=== PATIENT | male | born 1995 | race American Indian/Alaskan Native ===

== ENCOUNTER 2019-10-29 18:01 | Emergency (ER) | payer SELFPAY ==
[2019-10-29] MEDS ORDERED: methylPREDNISolone Sod Succinate 125 MG/2 ML INJ IV ONE (18:21)
[2019-10-29] MEDS ORDERED: diphenhydrAMINE 50 MG/ML VIAL IV ONE (18:21)
[2019-10-29] MEDS ORDERED: SODIUM CHLORIDE 0.9% 1000 ML 1,000 ML IV ONE (18:22)
[2019-10-29] MEDS ORDERED: FAMOTIDINE 20 MG/2 ML INJ IV ONE (18:22)
--- NOTE | 2019-10-29 18:40 | Emergency Department Report ---
ED Allergic Reaction HPI - General Chief complaint: Allergic Reaction Stated complaint: ALLERGIC REACTION Time Seen by Provider: 10/29/19 18:21 Source: patient Mode of arrival: Ambulatory Limitations: No Limitations - History of Present Illness Initial Comments: Patient is 24-year-old male with no significant past medical history. Patient presented to the ER complaining of generalized rash and itching and hives. Patient stated that he stepped on ant hole and since then he started having the symptoms. Patient denied any difficulty in breathing, shortness of breath, tongue swelling or difficulty swallowing. Patient vital signs currently stable with oxygen saturation of 100%. MD Complaint: allergic reaction, hives -: Sudden, This evening Exposure: insect bite Symptoms: rash Severity: moderate Treatment Prior to Arrival: none Previous Allergy History: none - Related Data Allergies Allergy/AdvReac Type Severity Reaction Status Date / Time No Known Allergies Allergy Unverified 10/29/19 18:03 ED Review of Systems ROS: Stated complaint: ALLERGIC REACTION Other details as noted in HPI Comment: All other systems reviewed and negative Constitutional: denies: chills, fever Respiratory: denies: cough, shortness of breath, SOB with exertion Cardiovascular: denies: chest pain, palpitations Gastrointestinal: denies: abdominal pain, nausea, vomiting, diarrhea, constipation, hematemesis, melena, hematochezia Musculoskeletal: denies: back pain Skin: rash, pruritus Neurological: denies: headache, weakness, numbness, paresthesias, confusion, abnormal gait ED Past Medical Hx - Past Medical History Previous Medical History?: No - Surgical History Past Surgical History?: No - Social History Smoking Status: Current Every Day Smoker Substance Use Type: None ED Physical Exam - General Limitations: No Limitations General appearance: alert, in no apparent distress - Head Head exam: Present: atraumatic, normocephalic, normal inspection - Eye Eye exam: Present: normal appearance - ENT ENT exam: Present: normal exam, normal orophraynx, mucous membranes moist - Neck Neck exam: Present: normal inspection, full ROM. Absent: tenderness, meningismus, lymphadenopathy, thyromegaly - Respiratory Respiratory exam: Present: normal lung sounds bilaterally - Cardiovascular Cardiovascular Exam: Present: regular rate, normal rhythm, normal heart sounds - GI/Abdominal GI/Abdominal exam: Present: soft, normal bowel sounds. Absent: distended, tenderness, guarding, rebound, rigid, organomegaly, mass, bruit, pulsatile mass, hernia - Extremities Exam Extremities exam: Present: full ROM - Neurological Exam Neurological exam: Present: alert, oriented X3, CN II-XII intact, normal gait, reflexes normal - Psychiatric Psychiatric exam: Present: normal mood - Skin Skin exam: Present: warm, intact, rash, urticaria. Absent: cyanosis, petechiae, ecchymosis ED Course Vital Signs 10/29/19 10/29/19 10/29/19 19:00 19:15 19:31 Pulse Rate 88 71 60 Respiratory 19 15 11 L Rate Blood Pressure 106/61 106/61 O2 Sat by Pulse 100 100 100 Oximetry 10/29/19 19:45 Pulse Rate 58 L Respiratory 10 L Rate Blood Pressure 106/61 O2 Sat by Pulse 100 Oximetry ED Medical Decision Making - Medical Decision Making Patient is 24-year-old male with no significant past medical history. Patient presented to the ER complaining of generalized rash and itching and hives. Patient stated that he stepped on ant hole and since then he started having the symptoms. Patient denied any difficulty in breathing, shortness of breath, tongue swelling or difficulty swallowing. Patient vital signs currently stable with oxygen saturation of 100%. Patient received Solu-Medrol 125 mg IV, Benadryl 25 mg and Pepcid 20 mg IV. Patient stated that he is feeling much better. Patient observed in the ER for more than 4 hours. Patient stated that he have to go with his ride because she is going to work at 10 PM and he does not want to stay further. Patient discharged in stable condition, alert oriented x3 in no acute distress with an oxygen saturation of 100%. Patient advised to return to the ER if he develop any new symptoms. Critical care attestation.: If time is entered above; I have spent that time in minutes in the direct care of this critically ill patient, excluding procedure time. ED Disposition Clinical Impression: Allergic reaction Disposition: DC-01 TO HOME OR SELFCARE Is pt being admited?: No Condition: Stable Instructions: Anaphylaxis (ED) Referrals: PRIMARY CARE, [Primary Care Provider] - 3-5 Days
[2019-10-29 22:50] VITALS: BP 97/54
== END 2019-10-29 21:50 | disposition home or self-care (01) ==
LOC: ED 18:01
DX: T78.40XA Allergy, unspecified, initial encounter (principal); F17.200 Nicotine dependence, unspecified, uncomplicated
CPT/HCPCS: 96361; 96374; 96375; 99282; J1200; J2930; J7030

== ENCOUNTER 2020-05-25 14:42 | Emergency (ER) | payer SELFPAY ==
[2020-05-25 15:15] VITALS: BP 109/67
[2020-05-25 16:44] LABS: Basophils % (Auto) 0.5 % (0.0-1.8); Eosinophils # (Auto) 0.1 K/mm3 (0.0-0.4); Hemoglobin 14.5 gm/dl (11.8-15.2); Lymphocytes # (Auto) 1.5 K/mm3 (1.2-5.4); Lymphocytes % (Auto) 31.1 % (13.4-35.0); Mean Corpuscular HGB Conc 32 % (32-34); Mean Corpuscular Volume 77 fl (84-94); Monocytes # (Auto) 0.4 K/mm3 (0.0-0.8); Monocytes % (Auto) 7.6 % (0.0-7.3); Platelet Count 151 K/mm3 (140-440); Red Blood Count 5.82 M/mm3 (3.65-5.03)
[2020-05-25 17:07] LABS: Alanine Aminotransferase 6 units/L (7-56); Albumin 4.6 g/dL (3.9-5); BUN/Creatinine Ratio 9; Blood Urea Nitrogen 11 mg/dL (9-20); Calcium 9.4 mg/dL (8.4-10.2); Hemolysis Index 8
--- NOTE | 2020-05-25 17:11 | XRay Report ---
CHEST 2 VIEWS INDICATION / CLINICAL INFORMATION: Chest/epigastric pain starting this morning. COMPARISON: None available. FINDINGS: SUPPORT DEVICES: None. HEART / MEDIASTINUM: The heart size and pulmonary vasculature are normal. The aorta is normal in leila amanda. LUNGS / PLEURA: No significant pulmonary or pleural abnormality. No pneumothorax. ADDITIONAL FINDINGS: The visualized upper abdomen is unremarkable. IMPRESSION: No acute findings. Signer Name: Dillon Simons MD Signed: 05/25/2020 5:06 PM Workstation Name: [id number]
--- NOTE | 2020-05-25 17:53 | Emergency Department Report ---
ED General Adult HPI - General Chief complaint: Abdominal Pain Stated complaint: CP Time Seen by Provider: 05/25/20 16:23 Source: patient Mode of arrival: Ambulatory Limitations: No Limitations - History of Present Illness Initial comments: Patient is a 24-year-old male presents emergency room complaints of substernal chest pain that began a week ago. He has associated epigastric abdominal discomfort. He states he has had some fatigue and generalized weakness. He denies any cough, shortness of breath, fever, vomiting, diarrhea, hematochezia, melena, hematemesis. He denies any sick contacts or recent travel. No past medical history. No allergies to medications. Patient endorses tobacco use. - Related Data Previous Rx's Medication Instructions Recorded Last Taken Type EPINEPHrine [Epipen] 0.3 mg IJ ONCE #1 auto.injct 10/29/19 Unknown Rx Famotidine [Pepcid] 40 mg PO QHS #5 tablet 10/29/19 Unknown Rx Prednisone [predniSONE 10 mg 10 mg PO .TAPER #1 tab.ds.pk 10/29/19 Unknown Rx (6-Day Pack, 21 Tabs)] diphenhydrAMINE [Benadryl CAP] 25 mg PO Q8HR PRN #20 capsule 10/29/19 Unknown Rx Famotidine [Pepcid] 40 mg PO QHS #30 tablet 05/25/20 Unknown Rx Ondansetron [Zofran Odt] 4 mg PO Q8HR PRN #10 tab.rapdis 05/25/20 Unknown Rx Sucralfate [Carafate] 1 gm PO ACHS 7 Days #21 tablet 05/25/20 Unknown Rx Allergies Allergy/AdvReac Type Severity Reaction Status Date / Time No Known Allergies Allergy Verified 05/25/20 15:11 ED Review of Systems ROS: Stated complaint: CP Other details as noted in HPI Comment: All other systems reviewed and negative ED Past Medical Hx - Past Medical History Previous Medical History?: No - Surgical History Past Surgical History?: No - Social History Smoking Status: Current Every Day Smoker Substance Use Type: None - Medications Home Medications: Home Medications Medication Instructions Recorded Confirmed Last Taken Type EPINEPHrine [Epipen] 0.3 mg IJ ONCE #1 auto.injct 10/29/19 Unknown Rx Famotidine [Pepcid] 40 mg PO QHS #5 tablet 10/29/19 Unknown Rx Prednisone [predniSONE 10 mg 10 mg PO .TAPER #1 tab.ds.pk 10/29/19 Unknown Rx (6-Day Pack, 21 Tabs)] diphenhydrAMINE [Benadryl CAP] 25 mg PO Q8HR PRN #20 capsule 10/29/19 Unknown Rx Famotidine [Pepcid] 40 mg PO QHS #30 tablet 05/25/20 Unknown Rx Ondansetron [Zofran Odt] 4 mg PO Q8HR PRN #10 tab.rapdis 05/25/20 Unknown Rx Sucralfate [Carafate] 1 gm PO ACHS 7 Days #21 tablet 05/25/20 Unknown Rx ED Physical Exam - General Limitations: No Limitations General appearance: alert, in no apparent distress - Head Head exam: Present: atraumatic, normocephalic - Eye Eye exam: Present: normal appearance - ENT ENT exam: Present: mucous membranes moist - Respiratory Respiratory exam: Present: normal lung sounds bilaterally. Absent: respiratory distress, wheezes, rales, rhonchi, stridor, chest wall tenderness, accessory muscle use, decreased breath sounds, prolonged expiratory - Cardiovascular Cardiovascular Exam: Present: regular rate, normal rhythm, normal heart sounds. Absent: systolic murmur, diastolic murmur, rubs, gallop - GI/Abdominal GI/Abdominal exam: Present: soft, tenderness (mild epigastric), normal bowel sounds. Absent: distended, guarding, rebound, rigid - Neurological Exam Neurological exam: Present: alert, oriented X3 - Psychiatric Psychiatric exam: Present: normal affect, normal mood - Skin Skin exam: Present: warm, dry, intact ED Course Vital Signs 05/25/20 15:13 Temperature 98.6 F Pulse Rate 79 Respiratory 16 Rate Blood Pressure 109/67 O2 Sat by Pulse 97 Oximetry ED Medical Decision Making - Lab Data Result diagrams: 05/25/20 16:32 05/25/20 16:32 Labs 05/25/20 05/25/20 16:32 16:32 WBC 4.8 RBC 5.82 H Hgb 14.5 Hct 45.0 MCV 77 L MCH 25 L MCHC 32 RDW 13.0 L Plt Count 151 Lymph % (Auto) 31.1 [place] % (Auto) 7.6 H Eos % (Auto) 3.0 Baso % (Auto) 0.5 Lymph # (Auto) 1.5 [place] # (Auto) 0.4 Eos # (Auto) 0.1 Baso # (Auto) 0.0 Seg Neutrophils % 57.8 Seg Neutrophils # 2.8 Sodium 140 Potassium 4.3 Chloride 104.1 Carbon Dioxide 28 Anion Gap 12 BUN 11 Creatinine 1.2 Estimated GFR > 60 BUN/Creatinine Ratio 9 Glucose 85 Calcium 9.4 Total Bilirubin 0.60 AST 12 ALT 6 L Alkaline Phosphatase 96 Total Protein 6.9 Albumin 4.6 Albumin/Globulin Ratio 2.0 Lipase 17 - EKG Data EKG shows normal: sinus rhythm, axis, intervals, QRS complexes, ST-T waves Rate: normal - Radiology Data Radiology results: report reviewed Ordering Physician: ABDOULAYE MISHRA Date of Service: 05/25/20 Procedure(s): XR chest routine 2V Accession Number(s): [id number] cc: ABDOULAYE MISHRA Fluoro Time In Minutes: CHEST 2 VIEWS INDICATION / CLINICAL INFORMATION: Chest/epigastric pain starting this morning. COMPARISON: None available. FINDINGS: SUPPORT DEVICES: None. HEART / MEDIASTINUM: The heart size and pulmonary vasculature are normal. The aorta is normal in caliber. LUNGS / PLEURA: No significant pulmonary or pleural abnormality. No pneumothorax. ADDITIONAL FINDINGS: The visualized upper abdomen is unremarkable. IMPRESSION: No acute findings. Signer Name: Dillon Simons MD Signed: 05/25/2020 5:06 PM Workstation Name: [id number] Transcribed By: RT Dictated By: Dillon Simons MD Electronically Authenticated By: Dillon Simons MD Signed Date/Time: 05/25/201705 DD/ 04 TD/TT: Print Cancel - Medical Decision Making Patient is a 24-year-old male presents emergency room complaints of substernal chest pain that began a week ago. He has associated epigastric abdominal discomfort. He states he has had some fatigue and generalized weakness. He denies any cough, shortness of breath, fever, vomiting, diarrhea, hematochezia, melena, hematemesis. He denies any sick contacts or recent travel. No past medical history. No allergies to medications. Patient endorses tobacco use. Vitals are normal. On exam patient has mild epigastric tenderness elevation, no guarding, no rebound, no rigidity, normal bowel sounds, no peritoneal signs. Labs are normal. Chest x-ray IMPRESSION: No acute findings. EKG is within normal limits. Is most likely related to GERD versus PUD. Symptoms do not appear consistent with ACS. Patient is PERC criteria negative for PE, PE very unlikely. Patient given prescription for Pepcid, Carafate, Zofran. Patient will be referred to GI and primary care. Discussed the importance of follow-up. Discussed return precautions. Advised patient Please take medication as prescribed. Increase your water intake. Please follow the diet for acid reflux/ulcers. Follow-up with a GI doctor. Follow-up with a primary care doctor. Return to emergency room for any new or worsening symptoms. Critical care attestation.: If time is entered above; I have spent that time in minutes in the direct care of this critically ill patient, excluding procedure time. ED Disposition Clinical Impression: Epigastric pain, Atypical chest pain Disposition: TO HOME OR SELFCARE Is pt being admited?: No Does the pt Need Aspirin: No Condition: Stable Instructions: Peptic Ulcer, Food Choices for Gastroesophageal Reflux Disease, Adult Additional Instructions: Please take medication as prescribed. Increase your water intake. Please follow the diet for acid reflux/ulcers. Follow-up with a GI doctor. Follow-up with a primary care doctor. Return to emergency room for any new or worsening symptoms. Prescriptions: Famotidine [Pepcid] 40 mg PO QHS #30 tablet Sucralfate [Carafate] 1 gm PO ACHS 7 Days #21 tablet Ondansetron [Zofran Odt] 4 mg PO Q8HR PRN #10 tab.rapdis PRN Reason: nausea/vomiting Referrals: ARINA SALAZAR MD [Staff Physician] - 3-5 Days [facility] [Provider Group] - 3-5 Days [facility] [Provider Group] - 3-5 Days Time of Disposition: 17:52 Print Language: OCCITAN
--- NOTE | 2020-05-26 11:44 | Electrocardiograph Report ---
[facility] Test Date: 2020-05-25 Test Time: 16:30:37 Pat Name: LEONA SALAMANCA Department: Room: Gender: M [employer]: CINDY : 1995 Requested By: TERE HERNADEZ Order Number: [id number] Reading MD: Lori Obando Measurements Intervals [place] Rate: 64 P: 48 AL: 126 QRS: 86 QRSD: 88 T: 59 QT: 382 QTc: 394 Interpretive Statements Sinus rhythm No previous ECG available for comparison Electronically Signed On 05-26-2020 11:43:40 EDT by Lori Obando
== END 2020-05-25 17:58 | disposition home or self-care (01) ==
LOC: ED 14:42
DX: R10.13 Epigastric pain (principal); R07.89 Other chest pain; F17.200 Nicotine dependence, unspecified, uncomplicated; Z79.899 Other long term (current) drug therapy
CPT/HCPCS: 36415; 71046; 80053; 83690; 85025; 93005; 99283